=== PATIENT | female | born 1990 | race African-American/Black ===

== ENCOUNTER 2017-08-14 07:34 | Inpatient (IN) ==
[2017-08-14] MEDS ORDERED: ceFAZolin 2,000 MG in PREMIX 1 EACH IV ONE (08:10)
[2017-08-14] MEDS ORDERED: LACTATED RINGERS 1,000 ML IV ONE (08:14)
[2017-08-14] MEDS ORDERED: FAMOTIDINE 20 MG/2 ML VIAL IV ONE (08:14)
[2017-08-14] MEDS ORDERED: CITRIC ACID/SODIUM CITRATE 30 ML UDCUP PO ONE (08:14)
[2017-08-14] MEDS ORDERED: LACTATED RINGERS 1,000 ML IV SCH (08:30)
[2017-08-14 08:40] LABS: Basophils % 0.5 % (0.0-0.8); Eosinophils # 0.1 10*3/uL (0.0-0.87); Eosinophils % 0.9 % (0.00-10.9); Hematocrit 35.5 VOL% (35.7-47.0); Hemoglobin 11.2 GM/DL (12.0-16.0); Immature Granulocytes % 0.9 %; Immature Granulocytes Absolute 0.05 #; Lymphocytes # 1.4 10*3/uL (1.4-4.0); Lymphocytes % 24.6 % (21.3-54.2); Mean Corpuscular HGB Conc 31.5 GM/DL (32-36); Mean Corpuscular Hemoglobin 24 PG (27-34); Mean Corpuscular Volume 76.3 FL (87-102); Mean Platelet Volume 11.7 FL (9.6-12.0); Monocytes # 0.5 10*3/uL (0.11-0.8); Monocytes % 8.4 % (1.7-12.7); Neutrophils # 3.6 10*3/uL (1.4-7.4); Neutrophils % 64.7 % (38.7-73.9); Platelet Count 253 T/CUMM (130-400); Red Blood Count 4.65 MC/CUMM (3.8-5.5); Red Cell Distribution Width 15.3 % (9.3-17.3); White Blood Count 5.6 T/CUMM (4-12)
[2017-08-14] MEDS ORDERED: OXYTOCIN/LR 30 UNIT/1,000 ML BAG IV ONE (09:00)
[2017-08-14] MEDS ORDERED: OXYTOCIN 10 UNIT/ML VIAL IM ONE (09:00)
[2017-08-14 09:04] LABS: Alanine Aminotransferase < 9 U/L (13-56); Albumin 2.8 G/DL (3.4-5.0); Alkaline Phosphatase 352 U/L (45-117); Aspartate Amino Transferase 10 U/L (0-37); Blood Urea Nitrogen 3 MG/DL (7-18); Calcium 8.4 MG/DL (8.5-10.1); Glucose 82 MG/DL (74-106); Osmolality,Calculated 272.5 MOS/KG (273-304); Potassium 3.8 MMOL/L (3.5-5.1); Sodium 139 MMOL/L (136-145); Total Protein 6.6 G/DL (6.4-8.3)
[2017-08-14 10:05] LABS: Cord Venous Blood HCO3 22.4 MMOL/L; Cord Venous Blood PCO2 40.5 MMHG; Cord Venous Blood PO2 26.8
[2017-08-14] MEDS ORDERED: fentaNYL 100 MCG/2 ML VIAL ONE (10:09)
[2017-08-14] MEDS ORDERED: MORPHINE 10 MG/10 ML VIAL ONE (10:10)
[2017-08-14 11:20] LABS: Apearance,Urine CLEAR (Clear); Bilirubin,Urine Negative (Negative); Blood, Urine Small mg/dL (Negative); Glucose,Urine (UA) Negative (Negative); Ketones,Urine Negative (Negative); Mucus,Urine Many /LPF (Occasional); Nitrite,Urine Negative (Negative); Protein,Urine Negative; RBC,Urine 6 /HPF (0-4); Squamous Epithelial Cell,Urine Occasional /HPF (0-10); Urine Color Yellow (Yellow); Urine Specific Gravity 1.015 (1.001-1.035); WBC,Urine 1 /HPF (0-6)
[2017-08-14] MEDS ORDERED: OXYTOCIN/LR 20 UNIT/1,000 ML BAG IV ONE ×2 (12:21→12:44)
[2017-08-14] MEDS: HYDROmorphone 2 MG/1 ML VIAL IV PRN ×2 (12:30→19:59)
[2017-08-14] MEDS ORDERED: RHO(D) IMMUNE GLOBULIN 300 MCG SYRINGE IM ONE (12:44)
[2017-08-14] MEDS ORDERED: ACETAMINOPHEN 325 MG TABLET PO PRN (12:44)
[2017-08-14] MEDS ORDERED: ONDANSETRON 4 MG/2 ML VIAL ONE (12:58)
[2017-08-14] MEDS: ONDANSETRON 4 MG/2 ML VIAL IV PRN ×2 (13:55→20:00)
[2017-08-14] MEDS: ceFAZolin 1,000 MG in SYRINGE 1 EACH IV SCH (17:42)
[2017-08-14 18:10] LABS: Hematocrit 32.5 VOL% (35.7-47.0); Hemoglobin 10.1 GM/DL (12.0-16.0)
[2017-08-14] MEDS: LACTATED RINGERS 1,000 ML IV SCH (18:24)
[2017-08-14] MEDS: DOCUSATE SODIUM 100 MG CAPSULE PO SCH (20:55)
[2017-08-15] MEDS: ceFAZolin 1,000 MG in SYRINGE 1 EACH IV SCH (02:13)
[2017-08-15] MEDS: LACTATED RINGERS 1,000 ML IV SCH (02:13)
[2017-08-15] MEDS ORDERED: ceFAZolin 1,000 MG in SYRINGE 1 EACH IV SCH (02:15)
[2017-08-15 05:43] LABS: Basophils % 0.4 % (0.0-0.8); Eosinophils % 0.3 % (0.00-10.9); Immature Granulocytes % 0.5 %; Immature Granulocytes Absolute 0.04 #; Lymphocytes # 1.2 10*3/uL (1.4-4.0); Lymphocytes % 14.5 % (21.3-54.2); Mean Corpuscular HGB Conc 31.3 GM/DL (32-36); Mean Corpuscular Hemoglobin 24 PG (27-34); Mean Corpuscular Volume 77.5 FL (87-102); Mean Platelet Volume 12.4 FL (9.6-12.0); Monocytes # 0.7 10*3/uL (0.11-0.8); Monocytes % 8.9 % (1.7-12.7); Neutrophils % 75.4 % (38.7-73.9); Platelet Count 215 T/CUMM (130-400); Red Blood Count 4.13 MC/CUMM (3.8-5.5)
[2017-08-15] MEDS: SIMETHICONE CHEW 80 MG TABLET PO PRN ×3 (06:08→21:50)
[2017-08-15] MEDS: MULTIVITAMIN (PRENATAL) TABLET PO SCH (09:36)
[2017-08-15] MEDS: IBUPROFEN 800 MG TABLET PO PRN (09:36)
[2017-08-15] MEDS: DOCUSATE SODIUM 100 MG CAPSULE PO SCH ×2 (09:36→21:51)
[2017-08-15] MEDS: MAGNESIUM HYDROXIDE SUSP 30 ML UDCUP PO PRN ×2 (09:37→21:50)
[2017-08-16 07:16] VITALS: BP 109/64
[2017-08-16] MEDS: IBUPROFEN 800 MG TABLET PO PRN (09:54)
[2017-08-16] MEDS: MULTIVITAMIN (PRENATAL) TABLET PO SCH (09:55)
[2017-08-16] MEDS: MAGNESIUM HYDROXIDE SUSP 30 ML UDCUP PO PRN (12:25)
== END 2017-08-16 12:45 | disposition home or self-care (01) | DRG 540 ==
LOC: N.LDOUT 07:34 → N.LD 07:36 → N.OB 12:43
PROVIDERS: ADMIT Obstetrics & Gynecology; ATTEND Obstetrics & Gynecology
PROC: LDCSECT (ICD-10-PCS; 2017-08-14 08:00)